=== PATIENT | female | born 1965 | race Two or more races ===

== ENCOUNTER 2021-01-16 14:25 | Emergency (ER) | payer OTHER ==
[~2021-01-16] VITALS: Ht 154.9 cm; Wt 65.8 kg
[~2021-01-16 14:25] MED LIST: AMOX500 PO; AMOX875 PO; Cleocin HCl300 MG PO; Crutch1 EACH MISC; HYDACE5 PO; HYDGUAL120 PO; PROM25 PO; SULTRIDS PO
[2021-01-16] MEDS ORDERED: Permethrin60 GM TOP (14:59)
== END 2021-01-16 15:05 | disposition home or self-care (01) ==
LOC: ER 14:25
DX: B86 Scabies (principal); F17.200 Nicotine dependence, unspecified, uncomplicated; Z88.0 Allergy status to penicillin
CPT/HCPCS: 99282

== ENCOUNTER → 2022-10-20 | Outpatient (CLI) | payer OTHER ==
[~2022-10-20] MED LIST changes: +Permethrin60 GM TOP
[2022-10-22 08:11] LABS: CHLAMYDIA BY NAA Negative (Negative); GONOCOCCUS BY NAA Negative (Negative); TRICH VAG BY NAA Negative (Negative)
== END | disposition home or self-care (01) ==
LOC: LAB SHORT 16:38
PROVIDERS: Physician Assistant
DX: Z09 Encounter for follow-up examination after completed treatment for conditions other than malignant neoplasm (principal); Z91.410 Personal history of adult physical and sexual abuse
CPT/HCPCS: 87491; 87591; 87661

== ENCOUNTER → 2024-04-11 | Outpatient (CLI) | payer OTHER ==
[2024-04-18 16:45] LABS: HPV HIGH RISK BY TMA Detected; HPV SOURCE Cervical
[2024-05-04 12:22] LABS: HPV GENOTYPE 16 BY TMA Not Detected; HPV GENOTYPE 18/45 BY TMA Not Detected; HPVG SOURCE Cervical
== END ==
LOC: LAB SHORT 17:51 → LAB 17:51
PROVIDERS: Physician Assistant
DX: Z01.419 Encounter for gynecological examination (general) (routine) without abnormal findings (principal)
CPT/HCPCS: 87624; G0123

== ENCOUNTER → 2024-07-24 | Outpatient (CLI) | payer OTHER | LOC: LAB SHORT 07:58 → LAB 07:58 | DX: R87.810 Cervical high risk human papillomavirus (HPV) DNA test positive (principal) | CPT/HCPCS: 88305 ==

== ENCOUNTER → 2025-05-23 | Outpatient (CLI) | payer OTHER | LOC: LAB SHORT 18:55 → LAB 18:55 | DX: R22.41 Localized swelling, mass and lump, right lower limb (principal) | CPT/HCPCS: 85379 ==